=== PATIENT | male | born 1950 | race Caucasian/White ===

== ENCOUNTER 2018-11-10 07:01 | Day surgery (SDC) | payer MEDICARE, OTHER ==
[~2018-11-10] VITALS: Ht 175.3 cm; Wt 88.4 kg
[2018-11-10 08:09] VITALS: Ht 175.3 cm; Wt 88.4 kg
[2018-11-10] MEDS ORDERED: LOSA25TA12 PO (08:22)
[2018-11-10] MEDS ORDERED: METF500T24 PO (08:22)
[2018-11-10] MEDS ORDERED: TAMS0.4C2 PO (08:22)
[2018-11-10] MEDS ORDERED: ASPI-817 PO (08:22)
[2018-11-10] MEDS ORDERED: OXYC5CAP17 PO (08:22)
[2018-11-10] MEDS ORDERED: SIMV20TA2 PO (08:22)
[2018-11-10] MEDS ORDERED: GLIP10TA14 PO (08:22)
--- NOTE | 2018-11-10 08:24 | PREAC ---
Date/Time of Note Date/Time of Note DATE: 11/10/18 TIME: : Anesthesia Eval and Record Evaluation Time Pre-Procedure Interview DATE: 11/10/18 TIME: : Age 68 Sex male NPO: 8 hrs Preoperative diagnosis screening Planned procedure colonoscopy Past Medical History Past Medical History: Includes Cardio: Dyslipidemia Endo: Diabetes Pulm: Other (deaf) Surgery & Anesthesia Issues No known issue Meds Anticoagulation: No Beta Shelley within 24 hr: No Reason Beta Shelley not given: Pt. not on B-Shelley Meds reviewed: Yes Allergies Coded Allergies: Penicillins (Verified Adverse Reaction, Severe, RASHES, 11/10/18) Allergies Reviewed: Yes Labs/Studies Labs Reviewed: Reviewed by anesthesiologist test: N/A Studies: ECG (n/a), CXR (n/a) Pre-procedure Exam Airway: Adequate mouth opening Mallampati: Mallampati I Teeth: Normal Lung: Normal Heart: Normal ASA Physical Status ASA physical status: 2 Emergency: None Planned Anesthetic General/MAC: MAC Planned Pain Management Parenteral pain med Pre-operative Attestations Prior to commencing anesthesia and surgery, the patient was re-evaluated, there was verification of: *The patient's identity *The results of appropriate recent lab work and preoperative vital signs *The above evaluation not changing prior to induction *Anesthetic plan, risk benefits, alternative and complications discussed with patient/family; questions answered; patient/family understands, accepts and wishes to proceed. SHERIDAN VARGAS MD Nov 10, 2018 08:24
[2018-11-10] MEDS ORDERED: FENTAnyl 50 MCG/ML VIAL ONE (08:26)
[2018-11-10] MEDS ORDERED: PROPOFOL 20 ML ONE (08:26)
[2018-11-10] MEDS ORDERED: ONDANSETRON 4 MG INJ IV PRN (08:30)
[2018-11-10 08:39] VITALS: BP 122/79; PULSE 59; RESP 20
[2018-11-10 09:22] VITALS: BP 123/76; PULSE 59; RESP 20
--- NOTE | 2018-11-10 17:31 | PAC ---
Date/Time of Note Date/Time of Note DATE: 11/10/18 TIME: 17:30 Post-Anesthesia Notes Post-Anesthesia Note Last documented vital signs Vital Signs Date Temp Pulse Resp B/P (MAP) Pulse Ox O2 O2 Flow FiO2 Time Delivery Rate 11/10/18 97.8 59 20 123/76 97 Room Air 09:22 (92) 11/10/18 97.8 08:39 Activity: WNL Respiratory function: WNL Cardiovascular function: WNL Mental status: Baseline Pain reasonably controlled: Yes Hydration appropriate: Yes Nausea/Vomiting absent: No SHERIDAN VARGAS MD Nov 10, 2018 17:31
== END 2018-11-10 12:41 | disposition home or self-care (01) ==
LOC: GIL 07:01
PROVIDERS: ATTEND Internal Medicine Gastroenterology
DX: Z12.11 Encounter for screening for malignant neoplasm of colon (principal); K64.0 First degree hemorrhoids; E78.5 Hyperlipidemia, unspecified; E11.9 Type 2 diabetes mellitus without complications
CPT/HCPCS: 82962; G0121; J3010